=== PATIENT | female | born 1935 ===

== ENCOUNTER 2019-07-16 10:31 | Emergency (ER) | payer OTHER ==
[~2019-07-16] VITALS: Ht 162.6 cm; Wt 63.5 kg
[2019-07-16] MEDS ORDERED: COZAAR25 MG PO (11:14)
[2019-07-16] MEDS ORDERED: SYNTHROID75 MCG PO (11:14)
[2019-07-16] MEDS ORDERED: COUMADIN6 MG PO (11:15)
[2019-07-16] MEDS ORDERED: METHYLPREDNISOLO4 M1 PO (11:17)
== END 2019-07-16 14:19 | disposition home or self-care (01) ==
LOC: ER 10:31
DX: M75.82 Other shoulder lesions, left shoulder (principal)

== ENCOUNTER 2022-06-12 09:32 | Outpatient (CLI) | payer OTHER ==
[~2022-06-12 09:32] MED LIST: COUMADIN6 MG PO; COZAAR25 MG PO; METHYLPREDNISOLO4 M1 PO; SYNTHROID75 MCG PO
== END 2022-06-12 09:44 | disposition home or self-care (01) ==
LOC: MRI 09:32
PROVIDERS: ATTEND Physical Medicine & Rehabilitation Pain Medicine
DX: M54.17 Radiculopathy, lumbosacral region (principal)
CPT/HCPCS: 72148

== ENCOUNTER → 2022-12-29 | Outpatient (CLI) | payer OTHER | END | disposition home or self-care (01) | LOC: RAD 10:51 | PROVIDERS: ATTEND Physical Medicine & Rehabilitation Pain Medicine | DX: M25.511 Pain in right shoulder (principal) ==